=== PATIENT | female | born 1955 | race Caucasian/White ===

== ENCOUNTER 2018-09-13 07:43 | Day surgery (SDC) | payer OTHER ==
[~2018-09-13 07:43] MED LIST: CEFAZOLIN 2 GM/50 ML (PMX) 50 ML IVPB
[2018-09-13] MEDS ORDERED: LIDOCAINE 2% (SDV) 5 ML INJ (08:49)
[2018-09-13] MEDS ORDERED: CEFAZOLIN 1 GM INJ (08:50)
[2018-09-13] MEDS ORDERED: PROPOFOL 20 ML (08:50)
[2018-09-13] MEDS ORDERED: FENTAnyl 50 MCG/ML VIAL (08:50)
[2018-09-13] MEDS ORDERED: LABETALOL HCL 20MG INJ (10:22)
[2018-09-13] MEDS: BUPIVACAINE 0.25% (MPF) 30 ML INJ (10:57)
[2018-09-13] MEDS: POLYMYXIN/BACITRACIN 1L IRRIG (10:57)
[2018-09-13] MEDS ORDERED: MEPERIDINE 25 MG INJ IV (11:00)
[2018-09-13] MEDS ORDERED: ONDANSETRON 4 MG INJ IV (11:00)
[2018-09-13] MEDS ORDERED: LABETALOL HCL 20MG INJ IV (11:00)
[2018-09-13] MEDS ORDERED: OXYCODONE/ACETAMINOPHEN (5/325) TAB PO ×2 (11:00)
[2018-09-13] MEDS ORDERED: FENTAnyl 50 MCG/ML VIAL IV ×3 (11:00)
[2018-09-13] MEDS ORDERED: hydrALAzine 20 MG INJ (11:24)
[2018-09-13] MEDS ORDERED: hydrALAzine 20 MG INJ IV (11:30)
== END 2018-09-13 13:09 | disposition home or self-care (01) ==
LOC: SDS 07:43
DX: G56.01 Carpal tunnel syndrome, right upper limb (principal); M65.331 Trigger finger, right middle finger; M65.341 Trigger finger, right ring finger; E78.5 Hyperlipidemia, unspecified
CPT/HCPCS: 26055